=== PATIENT | female | born 1985 | race Caucasian/White ===

== ENCOUNTER 2019-04-14 22:37 | Emergency (ER) | payer SELFPAY ==
[~2019-04-14] VITALS: Ht 160 cm; Wt 90.9 kg
[2019-04-14 22:41] VITALS: Ht 160 cm; Wt 90.9 kg
[2019-04-14] MEDS ORDERED: RISPERDAL1 MG PO (22:43)
[2019-04-14] MEDS ORDERED: ASPIRIN81 MG PO (22:43)
[2019-04-14] MEDS ORDERED: LISINOPRIL2.5 MG PO (22:43)
[2019-04-14] MEDS ORDERED: FERROUS SULFAT325 MG PO (22:44)
[2019-04-14] MEDS ORDERED: STEGLATRO15 MG PO (22:44)
[2019-04-14] MEDS ORDERED: NEURONTIN600 MG PO (22:44)
[2019-04-14] MEDS ORDERED: GLIMEPIRIDE4 MG PO (22:44)
[2019-04-14] MEDS ORDERED: LASIX40 MG PO (22:45)
[2019-04-14] MEDS ORDERED: XANAX0.5 MG PO (22:45)
[2019-04-14] MEDS ORDERED: LIPITOR40 MG PO (22:45)
[2019-04-14] MEDS ORDERED: ALDACTONE25 MG PO (22:45)
[2019-04-14] MEDS ORDERED: COREG25 MG PO (22:46)
[2019-04-14 23:45] LABS: APPEARANCE HAZY (CLEAR); BILIRUBIN NEGATIVE (NEGATIVE); COLOR YELLOW (YELLOW); GLUCOSE 1000 mg/dL (NEGATIVE); HCG URINE NEGATIVE (NEGATIVE); KETONE NEGATIVE (NEGATIVE); NITRITE POSITIVE (NEGATIVE); PROTEIN NEGATIVE (NEGATIVE); UROBILINOGEN NORMAL (NORMAL)
[2019-04-14 23:56] LABS: BACTERIA MANY /hpf (NONE SEEN); EPITHELIAL CELLS 0-5 /hpf (0-5); RED CELLS - URINE 0-5 /hpf (0-5)
[2019-04-15] MEDS ORDERED: CIPRO500 MG PO (00:06)
[2019-04-15] MEDS ORDERED: PHENAZOPYRIDIN200 MG PO (00:06)
[2019-04-15 00:32] VITALS: BP 112/70
[2019-04-16 21:06] LABS: CHLAMYDIA TRACHOMATIS, NAA Negative (Negative)
== END 2019-04-15 00:32 | disposition home or self-care (01) ==
LOC: D.ER 22:37
PROVIDERS: Family Medicine
DX: N39.0 Urinary tract infection, site not specified (principal)